=== PATIENT | female | born 1995 | race Caucasian/White ===

== ENCOUNTER 2023-04-05 23:51 | Emergency (ER) | payer MEDICAID, SELFPAY ==
[2023-04-05 23:49] VITALS: BP 129/112; PULSE 120; RESP 9; TEMP 36.7; O2SAT 98
[2023-04-05 23:53] VITALS: PULSE 121; RESP 25
[2023-04-06] VITALS (16 sets, daily range): BP systolic 104–129; BP diastolic 70–112; PULSE 87–130; RESP 8–22; TEMP 36.7; O2SAT 98–100
[2023-04-06] MEDS: Cellulose,Oxidized 2X3 PKT 1 EACH MC (00:15)
[2023-04-06] MEDS: Chlorhexidine 4% 120 ML BTL (00:15)
[2023-04-06 00:19] LABS: Abs Immature Grans 0.15 10^3/uL (0.0-0.06); Absolute Basophil Count 0.03 10^3/uL (0.0-0.2); Absolute Lymphocyte Count 2.24 10^3/uL (1.2-3.4); Absolute Monocyte Count 0.72 10^3/uL (0.1-0.8); Absolute Neutrophil Count 9.41 10^3/uL (1.2-6.7); Basophils % 0.2; Eosinophils % 0.8; HCT 34.4 % (36.0-46.0); HGB 11.5 g/dL (11.2-15.7); Immature Grans % 1.2; Lymphocytes % 17.7; MCH 30.5 pg (27.0-33.0); MCHC 33.4 % (32.0-36.0); MCV 91 fL (80-95); Monocytes % 5.7; Neutrophils % 74.4; Platelet Count 297 10^3/uL (130-400); RBC 3.77 10^6/uL (3.93-5.22); RDW-SD 43.3 fL; WBC 12.65 10^3/uL (4.4-10.8)
[2023-04-06] MEDS: ceFAZolin 3,000 MG in Normal Saline 100 ML 200 MG IVPB (00:27)
[2023-04-06] MEDS: Normal Saline 1,000 ML 1000 ML IV (00:30)
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
[2023-04-06 00:43] LABS: ALT 36 U/L (14-59); AST 34 U/L (15-37); Albumin 3.3 g/dL (3.4-5.0); Alkaline Phosphatase 54 U/L (46-116); Anion Gap 12.1 mmol/L (3-11); BUN 12 mg/dL (7-18); Bilirubin, Total 0.2 mg/dL (0.2-1.0); CO2 25.9 mmol/L (21.0-32.0); Calcium 8.7 mg/dL (8.5-10.1); Chloride 107 mmol/L (98-107); ETHANOL BLOOD 97.7 mg/dL (<10); Estimated GFR 80.18 (mL/min/1.73m2); Glucose 116 mg/dL (74-106); Potassium 3.4 mmol/L (3.5-5.1); Sodium 145 mmol/L (136-145); Total Protein 6.4 g/dL (6.4-8.2)
[2023-04-06 00:45] LABS: Acetaminophen < 2 ug/mL (10-30)
[2023-04-06 00:45] LABS: Bilirubin Negative (Negative); Blood Large (Negative); Clarity Sl Cloudy (Clear); Glucose Negative (Negative); Ketones Negative (Negative); Leukocyte Esterase Negative (Negative); Nitrite Negative (Negative); Urobilinogen 0.2 mg/dL (Up to 0.2)
[2023-04-06 00:53] LABS: *AMPHETAMINES SCREEN URINE Negative (Negative); *BARBITURATES SCREEN URINE Negative (Negative); *BENZODIAZEPINES SCREEN URINE Negative (Negative); Cannabinoids THC Positive (Negative); Cocaine Screen,Urine Positive (Negative); METHADONE URINE SCREEN Negative (Negative); OPIATES URINE SCREEN Negative (Negative)
[2023-04-06 00:57] LABS: Bacteria Few HPF (Negative); Epithelial Cells Many HPF (Negative); Tricyclic Antidepressants Negative (Negative); WBC 0-2 HPF (0-5)
[2023-04-06 00:58] LABS: C & S Indicated? No; Crystals Negative HPF (Negative); Mucus Negative (Negative)
== END 2023-04-06 01:44 | disposition short-term general hospital (02) ==
PROVIDERS: Emergency Provider Student in an Organized Health Care Education/Training Program
DX: R45.851 Suicidal ideations (principal); F10.10 Alcohol abuse, uncomplicated; Y90.4 Blood alcohol level of 80-99 mg/100 ml; F32.A Depression, unspecified; S51.012A Laceration without foreign body of left elbow, initial encounter; S55.99 Other specified injury of unspecified blood vessel at forearm level; Z23 Encounter for immunization; X78.1XXA Intentional self-harm by knife, initial encounter
CPT/HCPCS: 80053; 80307; 86850; 86900; 86901; 90471; 96361; 96374; 99285; 80320; 80329; 81003; 81015; 85025; J0690

== ENCOUNTER 2023-04-14 10:54 | Emergency (ER) | payer MEDICAID, SELFPAY ==
[2023-04-14 10:58] VITALS: BP 126/65; PULSE 106; RESP 16; TEMP 37.4; O2SAT 100
[2023-04-14 11:15] VITALS: BP 126/65; PULSE 106; RESP 16; TEMP 37.4; O2SAT 100
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
[2023-04-14] MEDS: Benzocaine 20% Gel 30 GM JAR MM (11:53)
[2023-04-14] MEDS: Bupivacaine 0.5% Pres-Free 30 ML VIAL IJ (12:14)
[2023-04-14] MEDS: Penicillin V POTASSIUM 500 MG TAB PO (12:21)
== END 2023-04-14 12:17 | disposition home or self-care (01) ==
LOC: ER 11:52
PROVIDERS: Emergency Provider Student in an Organized Health Care Education/Training Program
DX: K08.89 Other specified disorders of teeth and supporting structures (principal); F17.210 Nicotine dependence, cigarettes, uncomplicated
CPT/HCPCS: 64400; 99282

== ENCOUNTER 2023-04-18 08:08 | Emergency (ER) | payer MEDICAID, SELFPAY ==
[2023-04-18 08:12] VITALS: BP 120/58; PULSE 91; RESP 18; TEMP 37; O2SAT 100
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
[2023-04-18] MEDS: Lidocaine/Prilocaine Cream 5 GM TUBE TP (08:44)
== END 2023-04-18 09:28 | disposition home or self-care (01) ==
PROVIDERS: Emergency Provider Physician Assistant
DX: Z48.02 Encounter for removal of sutures (principal)
CPT/HCPCS: 99282

== ENCOUNTER 2023-04-22 07:53 | Emergency (ER) | payer MEDICAID, SELFPAY ==
[2023-04-22 07:58] VITALS: BP 115/86; PULSE 84; RESP 18; TEMP 36.8; O2SAT 99
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
[2023-04-22] MEDS: Fluconazole 150 MG TAB PO (08:36)
== END 2023-04-22 08:38 | disposition home or self-care (01) ==
PROVIDERS: Emergency Provider Student in an Organized Health Care Education/Training Program
DX: B37.31 Acute candidiasis of vulva and vagina (principal); S41.112D Laceration without foreign body of left upper arm, subsequent encounter; Z79.2 Long term (current) use of antibiotics; Z91.51 Personal history of suicidal behavior
CPT/HCPCS: 99283

== ENCOUNTER 2023-06-21 05:59 | Emergency (ER) | payer MEDICAID, SELFPAY ==
[2023-06-21 06:03] VITALS: BP 139/85; PULSE 64; RESP 18; TEMP 36.6; O2SAT 98
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
[2023-06-21] MEDS: Albuterol HFA 8 GM 60 PUFF INH IH (06:23)
[2023-06-21] MEDS: Inhaler, Assist Device 1 EACH MC (06:31)
[2023-06-21 06:44] VITALS: BP 130/80; PULSE 90; RESP 18; TEMP 36.6; O2SAT 98
[2023-06-21 06:48] VITALS: BP 130/80; PULSE 90; RESP 18; O2SAT 98
== END 2023-06-21 06:49 | disposition home or self-care (01) ==
LOC: ER 06:52
PROVIDERS: Emergency Provider Student in an Organized Health Care Education/Training Program
DX: R05.9 Cough, unspecified (principal); Z72.0 Tobacco use; J06.9 Acute upper respiratory infection, unspecified
CPT/HCPCS: 87426; 94640; 99283

== ENCOUNTER 2023-07-21 10:15 | Emergency (ER) | payer BC, MEDICAID, SELFPAY ==
[2023-07-21 10:17] VITALS: BP 121/77; PULSE 60; RESP 15; TEMP 36.8; O2SAT 100
[2023-07-21 10:22] VITALS: BP 121/77; PULSE 60; RESP 15; TEMP 36.8; O2SAT 100
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
[2023-07-21 11:15] VITALS: BP 121/77; PULSE 60; RESP 15; TEMP 36.8; O2SAT 100
== END 2023-07-21 11:16 | disposition home or self-care (01) ==
PROVIDERS: Emergency Provider Physician Assistant
DX: R68.84 Jaw pain (principal); K04.7 Periapical abscess without sinus
CPT/HCPCS: 64400

== ENCOUNTER 2023-11-21 15:55 | Emergency (ER) | payer SELFPAY ==
[2023-11-21 16:03] VITALS: BP 98/67; PULSE 89; RESP 14; TEMP 37; O2SAT 99
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
--- NOTE | 2023-11-21 16:15 | DI.RAD_ITS ---
Exam(s) XR NASAL BONES EXAM: XR NASAL BONES CLINICAL HISTORY: pain and deformity. TECHNIQUE: 2D digital imaging was performed. COMPARISON: No exams were available for comparison FINDINGS: BONES: No evidence of fracture. The nasal septum is midline. SOFT TISSUES: Unremarkable. IMPRESSION: No definite fracture is identified. No soft tissue swelling is seen. DATA REPOSITORY: RADIATION DOSE DELIVERED:
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
== END 2023-11-21 16:58 | disposition home or self-care (01) ==
PROVIDERS: Emergency Provider Physician Assistant
DX: S02.2XXD Fracture of nasal bones, subsequent encounter for fracture with routine healing (principal); S50.01XD Contusion of right elbow, subsequent encounter; S60.222D Contusion of left hand, subsequent encounter; S60.413D Abrasion of left middle finger, subsequent encounter; F17.210 Nicotine dependence, cigarettes, uncomplicated; Y09 Assault by unspecified means
CPT/HCPCS: 99283; 70160; 73080; 73130

== ENCOUNTER 2023-12-04 12:55 | Emergency (ER) | payer SELFPAY ==
[2023-12-04 13:00] VITALS: BP 108/76; PULSE 100; RESP 18; TEMP 37.4; O2SAT 99
[2023-12-04] MEDS: Lidocaine/Epinephri/Tetracaine Topical Gel 3 ML TP (13:29)
--- NOTE | 2023-12-04 15:06 | NUR.NOTE ---
Referral faxed to [facility] for partial thickness bur, wound care, in 48hrs. Nursing Note:
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
== END 2023-12-04 15:25 | disposition home or self-care (01) ==
PROVIDERS: Emergency Provider Physician Assistant
DX: T25.221A Burn of second degree of right foot, initial encounter (principal); T24.111A Burn of first degree of right thigh, initial encounter; T31.0 Burns involving less than 10% of body surface; X10.1XXA Contact with hot food, initial encounter; Y93.89 Activity, other specified; F17.210 Nicotine dependence, cigarettes, uncomplicated
CPT/HCPCS: 99283

== ENCOUNTER 2023-12-06 11:20 | Emergency (ER) | payer SELFPAY ==
[2023-12-06 11:30] VITALS: BP 117/88; PULSE 83; RESP 18; TEMP 36.5; O2SAT 98
[2023-12-06] MEDS: HYDROcodone 5/Acetaminophen 325 TAB PO (12:02)
[2023-12-06] MEDS: Silver sulfaDIAZINE 1% 25 GM TUBE TP (12:03)
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
== END 2023-12-06 12:09 | disposition home or self-care (01) ==
LOC: ER 12:18
PROVIDERS: Emergency Provider Emergency Medicine
DX: T25.229 Burn of second degree of unspecified foot (principal); T24.111 Burn of first degree of right thigh
CPT/HCPCS: 16020

== ENCOUNTER 2024-02-05 04:11 | Emergency (ER) | payer SELFPAY ==
[2024-02-05 04:14] VITALS: BP 155/91; PULSE 75; RESP 16; TEMP 36.8; O2SAT 100
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
--- NOTE | 2024-02-05 05:13 | DI.RAD_ITS ---
Exam(s) XR FOOT LT COMPLETE EXAM: XR FOOT LT COMPLETE CLINICAL HISTORY: eval fb. TECHNIQUE: 2D digital imaging was performed. Three views. COMPARISON: No exams were available for comparison FINDINGS: BONES: No acute fracture is present. No bony destructive lesion is seen. JOINTS: No dislocation present. SOFT TISSUE: Normal. No radiopaque foreign body or abnormal gas collection. IMPRESSION: Unremarkable radiographs of the left foot. DATA REPOSITORY: RADIATION DOSE DELIVERED:
--- NOTE | 2024-02-05 05:29 | DI.VRAD_ITS ---
PROCEDURE INFORMATION: Exam: XR Left Foot Exam date and time: 02/05/2024 5:07 AM Age: 28 years old Clinical indication: Other: Eval fb TECHNIQUE: Imaging protocol: Radiologic exam of the left foot. Views: 3 or more views. COMPARISON: No relevant prior studies available. FINDINGS: Bones/joints: Three views of the left foot reveal no acute fracture or dislocation. There is fusion across the distal interphalangeal joint of the 5th digit. Soft tissues: There appears to be soft tissue swelling in the 5th toe. Clinical correlation is recommended. No radiopaque foreign body is seen. IMPRESSION: No acute fracture or foreign body identified. Dictated and Authenticated by: Adam Nation MD. Ordering:TAIWO Healy MD
== END 2024-02-05 05:45 | disposition home or self-care (01) ==
PROVIDERS: Emergency Provider Student in an Organized Health Care Education/Training Program
DX: S91.312A Laceration without foreign body, left foot, initial encounter (principal); F17.210 Nicotine dependence, cigarettes, uncomplicated; W25.XXXA Contact with sharp glass, initial encounter; Y93.01 Activity, walking, marching and hiking; Y92.414 Local residential or business street as the place of occurrence of the external cause
CPT/HCPCS: 12001; 99283; 73630

== ENCOUNTER 2024-02-06 15:22 | Emergency (ER) | payer SELFPAY ==
[2024-02-06 15:25] VITALS: BP 127/84; PULSE 91; RESP 16; TEMP 37.7; O2SAT 98
[2024-02-06] MEDS: Doxycycline Hyclate 100 MG CAP PO (16:36)
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
== END 2024-02-06 16:37 | disposition home or self-care (01) ==
PROVIDERS: Emergency Provider Physician Assistant
DX: S91.312D Laceration without foreign body, left foot, subsequent encounter (principal); B96.89 Other specified bacterial agents as the cause of diseases classified elsewhere; W25.XXXD Contact with sharp glass, subsequent encounter
CPT/HCPCS: 87077; 99283; 87070; 87186; 87205

== ENCOUNTER 2024-03-14 17:04 | Emergency (ER) | payer SELFPAY ==
[2024-03-14 17:07] VITALS: BP 139/79; PULSE 78; RESP 20; TEMP 36.8; O2SAT 97
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
--- NOTE | 2024-03-14 17:15 | DI.RAD_ITS ---
Exam(s) XR CHEST 2V PA LATERAL EXAM: XR CHEST 2V PA LATERAL CLINICAL HISTORY: Trauma TECHNIQUE: 2D digital imaging was performed of the chest. Two images were obtained. PA and lateral views were obtained. COMPARISON: No exams were available for comparison FINDINGS: MEDIASTINUM: Normal. HEART: Normal. PULMONARY VASCULATURE: Normal. LUNGS: Clear. PLEURAL SPACE: No pleural effusion or pneumothorax. BONE:Within normal limits for the patient's age. The proximal right humeral fracture is best appreci ated on the x-ray of the right shoulder from the same day. There is again seen mild inferior subluxa tion of the right humeral head relative to the glenoid. OTHER FINDINGS:Normal. IMPRESSION: No acute pulmonary findings. DATA REPOSITORY: RADIATION DOSE DELIVERED:
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
[2024-03-14] MEDS: oxyCODONE 5 MG TAB PO (17:39)
[2024-03-14] MEDS: Acetaminophen 500 MG TAB 1000 MG PO (17:39)
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
--- NOTE | 2024-03-14 20:07 | DI.VRAD_ITS ---
PROCEDURE INFORMATION: Exam: CT Right Upper Extremity Without Contrast Exam date and time: 03/14/2024 19:31 Age: 28 years old Clinical indication: Other: Proximal humerus FX TECHNIQUE: Imaging protocol: Computed tomography of the right upper extremity without contrast. COMPARISON: CR XR SHOULDER RT COMPLETE 2+V 03/14/2024 17:58 FINDINGS: Bones/joints: Redemonstration of the acute comminuted fracture of the humeral head and neck. Humeral head fracture components are predominantly nondisplaced. The fracture involves the greater tuberosity and humeral head neck junction; there is a mild apex lateral angulation across the head neck junction along with 18 mm impaction. No dislocation. The AC joint is preserved. Soft tissues: Edema in the soft tissues lateral to the right humerus extending into the upper arm without a measurable hematoma. IMPRESSION: Redemonstration of the acute comminuted fracture of the humeral head and neck. Further details as above. Dictated and Authenticated by: Iveth Noriega MD. Ordering:KITTY Chávez MD
--- NOTE | 2024-03-15 15:56 | NUR.NOTE ---
Access chart to assist Dr. Reddy to determine the pain medication sent home with and how many. I found the information and relayed it to him. Nursing Note:
== END 2024-03-14 19:56 | disposition home or self-care (01) ==
PROVIDERS: Emergency Provider Emergency Medicine
DX: S42.351A Displaced comminuted fracture of shaft of humerus, right arm, initial encounter for closed fracture (principal); S32.19XA Other fracture of sacrum, initial encounter for closed fracture; F17.210 Nicotine dependence, cigarettes, uncomplicated; V86.09XA Driver of other special all-terrain or other off-road motor vehicle injured in traffic accident, initial encounter
CPT/HCPCS: 71046; 72170; 72220; 73030; 73070; 73200; 99284

== ENCOUNTER 2024-08-04 16:54 | Emergency (ER) | payer MEDICAID, SELFPAY ==
[2024-08-04 16:56] VITALS: BP 145/70; PULSE 75; RESP 15; TEMP 36.5; O2SAT 98
--- NOTE | 2024-08-04 17:15 | DI.RAD_ITS ---
Exam(s) XR HAND RT COMPLETE EXAM: XR HAND RT COMPLETE CLINICAL HISTORY: right hand injury. TECHNIQUE: 2D digital imaging was performed of the right hand. Three images were obtained. AP, late ral and oblique views were obtained. COMPARISON: CR XR HAND RT COMPLETE from 11/21/2023 FINDINGS: BONES: No acute fracture is present. No bony destructive lesion is seen. JOINTS: No dislocation present. SOFT TISSUE: There are linear densities seen in the soft tissues at the ulnar aspect of the base of t he proximal phalanx of the 5th finger. These may represent foreign bodies. Please correlate clinica lly. Underlying bone is unremarkable. No donor site is seen. IMPRESSION: 1. No acute fracture or dislocation. 2. Linear densities at the ulnar aspect of the base of the proximal phalanx of the 5th finger. These may represent loose bodies. Please correlate clinically. DATA REPOSITORY: RADIATION DOSE DELIVERED:
[2024-08-04 18:01] VITALS: BP 130/80; PULSE 75; RESP 15; TEMP 36.5; O2SAT 98
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
--- NOTE | 2024-08-04 19:19 | DI.VRAD_ITS ---
PROCEDURE INFORMATION: Exam: XR Right Hand Exam date and time: 08/04/2024 5:38 PM Age: 29 years old Clinical indication: Other: Right hand injury TECHNIQUE: Imaging protocol: Radiologic exam of the right hand. Views: 3 or more views. COMPARISON: CT UPPER EXTREMITY RT WO 03/14/2024 7:31 PM FINDINGS: Bones/joints: Three views of the right hand reveal no acute fracture or dislocation. There is gross deformity of the 5th right metacarpal with an appearance suggesting an old fracture. Soft tissues: There are small linear soft tissue densities projecting over the lateral margin of the hand adjacent to the base of the right 5th proximal phalanx. Soft tissue calcifications or radiodense foreign debris could have this appearance. Clinical correlation is recommended. IMPRESSION: No acute fracture or dislocation seen in the right hand. Old right 5th metacarpal fracture deformity. Dictated and Authenticated by: Adam Nation MD. Orderin Mercy Wilcox MD
== END 2024-08-04 18:02 | disposition home or self-care (01) ==
LOC: ER 18:06
PROVIDERS: Emergency Provider Emergency Medicine
DX: S60.221A Contusion of right hand, initial encounter (principal); K02.9 Dental caries, unspecified; W22.09XA Striking against other stationary object, initial encounter; Y93.89 Activity, other specified
CPT/HCPCS: 99283; 73130

== ENCOUNTER 2024-10-27 04:05 | Emergency (ER) | payer MEDICAID, SELFPAY ==
[2024-10-27 03:51] VITALS: BP 140/106; PULSE 88; RESP 20; TEMP 36.6; O2SAT 98
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
[2024-10-27 04:28] LABS: Absolute Basophil Count 0.03 10^3/uL (0.0-0.2); Basophils % 0.2 %; Eosinophils % 0.3 %; HCT 38.6 % (36.0-46.0); HGB 12.9 g/dL (11.2-15.7); Immature Grans % 0.6 %; Lymphocytes % 9.7 %; MCH 28.9 pg (27.0-33.0); MCHC 33.4 % (32.0-36.0); MCV 87 fL (80-95); MPV 11.1 fL (8.0-11.0); Monocytes % 5.7 %; Neutrophils % 83.5 %; Platelet Count 270 10^3/uL (130-400); RBC 4.46 10^6/uL (3.93-5.22); RDW 14.5 % (11.7-14.6); RDW-SD 45.5 fL
[2024-10-27 04:29] LABS: Absolute Eosinophil Count 0.05 10^3/uL (0.0-0.7); Absolute Lymphocyte Count 1.52 10^3/uL (1.2-3.4); Absolute Monocyte Count 0.89 10^3/uL (0.1-0.8); Absolute Neutrophil Count 13.11 10^3/uL (1.2-6.7)
[2024-10-27 04:36] LABS: Bilirubin Negative (Negative); Blood Moderate (Negative); Clarity Clear (Clear); Glucose Negative (Negative); Ketones Negative (Negative); Leukocyte Esterase Negative (Negative); Nitrite Negative (Negative); Specific Gravity >= 1.030 (1.005-1.025); Urobilinogen 0.2 mg/dL (Up to 0.2)
[2024-10-27] MEDS: ceFAZolin 2 GM/50 ML BAG IVPB (04:37)
[2024-10-27] MEDS: Normal Saline 1,000 ML 1000 ML IV (04:37)
[2024-10-27 04:43] LABS: Epithelial Cells Rare HPF (Negative); WBC Negative HPF (0-5)
[2024-10-27] MEDS: Ketorolac 30 MG/ML VIAL IVP (04:43)
[2024-10-27 04:44] LABS: Bacteria Rare HPF (Negative); C & S Indicated? No; Casts Negative LPF (Negative); Crystals Negative HPF (Negative); Mucus Negative (Negative)
[2024-10-27] MEDS: Lidocaine/Epinephri/Tetracaine Topical Gel 3 ML TP (04:44)
[2024-10-27 04:49] LABS: Salicylate 3.6 mg/dL (<2.8)
[2024-10-27 04:52] LABS: Acetaminophen < 2 ug/mL (10-30)
--- NOTE | 2024-10-27 04:52 | NUR.NOTE ---
Personal belongings in zone b locker 2. Nursing Note:
[2024-10-27 04:56] LABS: ALT 33 U/L (14-59); AST 57 U/L (15-37); Albumin 4.1 g/dL (3.4-5.0); Alkaline Phosphatase 74 U/L (46-116); Anion Gap 9.9 mmol/L (3-11); BUN 20 mg/dL (7-18); Bilirubin, Total 0.3 mg/dL (0.2-1.0); CO2 25.1 mmol/L (21.0-32.0); CREATININE 1.1 mg/dL (0.55-1.02); Chloride 105 mmol/L (98-107); ETHANOL BLOOD 166.1 mg/dL (<10); Estimated GFR 70.63 (mL/min/1.73m2); Glucose 98 mg/dL (74-106); Potassium 3.9 mmol/L (3.5-5.1); Sodium 140 mmol/L (136-145); TSH (W/Ref FT4) 4.28 uIU/mL (0.36-3.74); Total Protein 7.5 g/dL (6.4-8.2)
[2024-10-27 05:02] LABS: *AMPHETAMINES SCREEN URINE Positive (Negative); *BARBITURATES SCREEN URINE Negative (Negative); *BENZODIAZEPINES SCREEN URINE Negative (Negative); Cannabinoids THC Positive (Negative); Cocaine Screen,Urine Positive (Negative); METHADONE URINE SCREEN Negative (Negative); OPIATES URINE SCREEN Negative (Negative)
[2024-10-27 05:03] LABS: Tricyclic Antidepressants Negative (Negative)
[2024-10-27] MEDS: Acetaminophen 500 MG TAB 1000 MG PO (05:10)
[2024-10-27 05:12] LABS: FREE T4 0.97 ng/dL (0.76-1.46)
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
[2024-10-27] MEDS: Cephalexin 500 MG CAP PO ×2 (09:07→12:06)
--- NOTE | 2024-10-27 09:48 | PDOC.CMSAFE ---
Date of service: 10/27/24 Time of Service: 09:48 Care Management Safety Plan Status Status: Voluntary Reason for Wait Reason for Wait: Assessment/Screening Safety Plan Safety Plan: CM will respond to ED to assess patient after patient has been medically cleared and assessed by screener. If screener deems patient meets criteria for psychiatric stabilization CM will facilitate interdepartmental huddle with [facility] screener for safety planning considerations and meet with patient to review [facility] policy and safety plan, establish individual wishes for treatment and maintain patient rights. In the interim; please note safety plan below to guide patient care while awaiting further assessment in the ED.? SAFETY PLAN: 1. Will remain on suicide precautions and in paper clothes.? 2. Will remain in room under direct supervision of one-on-one staff at all times provided by [employer]IN, [employer] supervisor rough end. 3. May have paper cups, plates, finger foods as well as a cardboard spoon with which to eat meals. 4. Follow [facility] Management of the Admitted Behavioral Health Patient policy. 5. Comfort bath system only. 6. No personal belongings 7. No visitors. 8. Phone contact limited to?.. 9. Due to VOLUNTARY status, if patient wishes to leave [facility], staff will contact [facility] Crisis Screener ([phone]) and On-Call [employer] Operator ([phone]) as soon as possible. In the event of elopement, notify [facility] Police ([phone]). ? If deemed appropriate for inpatient psychiatric care, safety plan will be established with patient, and care team, to adhere to patient goals, identify restrictions based on behavioral status, address nutrition, and determine allowed personal belongings, tools for hygiene and personal care. As well plan will determine level of activity including ambulation, level of supervision, visitors, and determine privileges based on level of acuity, behaviors and level of engagement by patient.
[2024-10-27] MEDS: Ibuprofen 400 MG TAB PO (13:39)
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
== END 2024-10-27 14:39 | disposition home or self-care (01) ==
PROVIDERS: Student in an Organized Health Care Education/Training Program; Emergency Provider Emergency Medicine; PCP Student in an Organized Health Care Education/Training Program
DX: S81.012A Laceration without foreign body, left knee, initial encounter (principal); T25.222A Burn of second degree of left foot, initial encounter; F32.A Depression, unspecified; F10.929 Alcohol use, unspecified with intoxication, unspecified; X83.8XXA Intentional self-harm by other specified means, initial encounter; Z59.811 Housing instability, housed, with risk of homelessness; Z59.10 Inadequate housing, unspecified; Z59.41 Food insecurity; Z59.12 Inadequate housing utilities; Z59.82 Transportation insecurity; Z59.89 Other problems related to housing and economic circumstances; Z56.9 Unspecified problems related to employment; Z73.9 Problem related to life management difficulty, unspecified; Z60.8 Other problems related to social environment; S00.531A Contusion of lip, initial encounter
CPT/HCPCS: 99285 ×2; 12032; 96375; 81025; 00123; 73562; 80053; 80307; 96361; 96365; 73700; 80320; 80329; 81003; 81015; 84439; 84443; 85025; J0690; J1885

== ENCOUNTER 2025-01-27 17:16 | Emergency (ER) | payer MEDICAID, SELFPAY ==
[2025-01-27 17:21] VITALS: BP 149/104; PULSE 97; RESP 16; TEMP 36.6; O2SAT 98
--- NOTE | 2025-01-27 17:45 | DI.RAD_ITS ---
Exam(s) XR ABDOMEN FLAT PLATE EXAM: 2D digital imaging was performed. CLINICAL HISTORY: left flank pain. COMPARISON: No exams were available for comparison TECHNIQUE: Supine views of the abdomen performed. FINDINGS: BOWEL GAS PATTERN: Nondistended. CALCIFICATIONS: No radiopaque calcifications. OSSEOUS STRUCTURES: Unremarkable for age. Visualized lung bases: Clear. IMPRESSION: 1. Nonobstructive bowel gas pattern. 2. No radiopaque calculi. DATA REPOSITORY: RADIATION DOSE DELIVERED:
--- NOTE | 2025-01-27 17:45 | DI.RAD_ITS ---
Exam(s) XR HIP LT COMPLETE AP PELVIS EXAM: XR HIP LT COMPLETE AP PELVIS CLINICAL HISTORY: left flank pain. TECHNIQUE: 2D digital imaging was performed. Two views. COMPARISON: CR XR PELVIS AP from 03/14/2024 FINDINGS: BONES: No acute fracture is present. No bony destructive lesion is seen. JOINTS: No dislocation present. The SI joints and pubic symphysis are intact. No significant degenerative changes. SOFT TISSUE: Normal. IMPRESSION: Unremarkable radiographs of the left hip. DATA REPOSITORY: RADIATION DOSE DELIVERED:
[2025-01-27 17:46] LABS: Glucose Negative (Negative)
[2025-01-27 18:23] VITALS: BP 109/85; PULSE 80; RESP 16; O2SAT 99
[2025-01-27] MEDS: Cyclobenzaprine 10 MG TAB, 3 TABS/BTL PO (18:51)
[2025-01-27] MEDS: Ketorolac 15 MG/ML VIAL IM (18:58)
[2025-01-27 19:00] VITALS: BP 116/82; PULSE 78; RESP 16; O2SAT 99
--- NOTE | 2025-01-27 20:04 | DI.VRAD_ITS ---
PROCEDURE INFORMATION: Exam: XR Abdomen Exam date and time: 01/27/2025 6:15 PM Age: 29 years old Clinical indication: Other: Left flank pain TECHNIQUE: Imaging protocol: Radiologic exam of the abdomen. Views: Frontal supine view of the abdomen. 1 View. COMPARISON: CR XR PELVIS AP 03/14/2024 6:04 PM FINDINGS: Gastrointestinal tract: Normal. No bowel dilation. Vasculature: Radiopacities consistent with phleboliths project over left hemipelvis Bones/joints: Unremarkable. IMPRESSION: No acute findings. Dictated and Authenticated by: Ruddy Ray MD. Orderin Karla Jasso MD
--- NOTE | 2025-01-27 20:11 | DI.VRAD_ITS ---
PROCEDURE INFORMATION: Exam: XR Left Hip Exam date and time: 01/27/2025 6:18 PM Age: 29 years old Clinical indication: Other: Left flank pain TECHNIQUE: Imaging protocol: Radiologic exam of the left hip. Views: 2 or 3 views hip with pelvis when performed. COMPARISON: CR XR PELVIS AP 03/14/2024 6:04 PM FINDINGS: Bones/joints: Unremarkable. No acute fracture. Soft tissues: Unremarkable. IMPRESSION: No acute findings. Dictated and Authenticated by: Ruddy Ray MD. Orderin Karla Jasso MD
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
--- NOTE | 2025-01-28 11:41 | NUR.NOTE ---
Accessed Pt chart to find out who the Primary Care Provider is. He is Jewels Lino from [facility]. faxed refill request to him.
== END 2025-01-27 19:02 | disposition home or self-care (01) ==
PROVIDERS: Emergency Provider Physician Assistant; PCP Student in an Organized Health Care Education/Training Program
DX: M79.18 Myalgia, other site (principal); M25.552 Pain in left hip; Z59.10 Inadequate housing, unspecified; Z59.82 Transportation insecurity; Z59.811 Housing instability, housed, with risk of homelessness; Z59.87 Material hardship due to limited financial resources, not elsewhere classified; Z60.8 Other problems related to social environment
CPT/HCPCS: 99283; 99284; 96372; 81025; 73502; 74018; 81003; J1885

== ENCOUNTER 2025-01-30 08:58 | Outpatient (REF) | payer MEDICAID, SELFPAY ==
--- NOTE | 2025-01-30 08:40 | PAPFT_PTH ---
PATIENT: Ila Quarles LOC: [facility] U#:[id number] AGE/SX: 29/F ROOM: RE01/30/[address]: Fadi Lino : 1995 BED: DIS: 01/30/2025 SPEC #: [id number] RECD: 01/30/25 16:09 STATUS: ANKIT REBerto #: [id number] BERNARD: 01/30/25 08:[address]: Fadi Lino DEPT: [facility] Cytology RECD BY: Louisa Delacruz Tissues: 1 - CX/ENDOCX FOR PAP SMEARS Procedures: PAP THIN PREP/UVM Screening Comments: [id number]
== END 2025-01-30 08:59 | disposition home or self-care (01) ==
LOC: NCHCN 08:58
PROVIDERS: PCP Student in an Organized Health Care Education/Training Program; Visit Provider Student in an Organized Health Care Education/Training Program
DX: Z12.4 Encounter for screening for malignant neoplasm of cervix (principal)
CPT/HCPCS: 88142

== ENCOUNTER 2025-03-13 20:59 | Inpatient (IN) | payer MEDICAID, SELFPAY ==
[2025-03-13] VITALS (42 sets, daily range): BP systolic 101–157; BP diastolic 58–114; PULSE 61–115; RESP 10–22; TEMP 36.8; O2SAT 93–100
--- NOTE | 2025-03-13 21:00 | RT.EKG_ITS ---
APPROVED REPORT Exam: Resting ECG Reason for Exam: Overdose Patient Location: E HR:79 bpm ECG Measurements Heart Rate 79 AXIS IN 152 P 66 QRSd 102 QRS 43 QT 397 T 44 QTc 457 Conclusion Sinus rhythm, rate 79 No interval abnormalities No STEMI No priors available for comparison
[2025-03-13] MEDS: Naloxone 0.4 MG/ML VIAL 1 MG IVP (21:09)
[2025-03-13 21:12] LABS: Abs Immature Grans 0.28 10^3/uL (0.0-0.06); HCT 36.6 % (36.0-46.0); HGB 12.3 g/dL (11.2-15.7); Immature Grans % 2.3 %; MCH 30.6 pg (27.0-33.0); MCHC 33.6 % (32.0-36.0); MCV 91 fL (80-95); MPV 11.0 fL (8.0-11.0); Platelet Count 207 10^3/uL (130-400); RBC 4.02 10^6/uL (3.93-5.22); RDW 13.2 % (11.7-14.6); RDW-SD 43.1 fL; WBC 12.20 10^3/uL (4.4-10.8)
[2025-03-13] MEDS: Etomidate 20 MG/10 ML VIAL 10 MG IVP (21:21)
[2025-03-13] MEDS: Rocuronium 50 MG/5 ML SYR 120 MG IVP (21:22)
[2025-03-13] MEDS: PROPOFOL 1,000 MG/100 ML BTL 10 MG IV_INF (21:24)
[2025-03-13 21:29] LABS: ALT 21 U/L (14-59); AST 24 U/L (15-37); Albumin 3.6 g/dL (3.4-5.0); Alkaline Phosphatase 64 U/L (46-116); Anion Gap 8.5 mmol/L (3-11); BUN 8 mg/dL (7-18); Bilirubin, Total 0.3 mg/dL (0.2-1.0); CO2 28.5 mmol/L (21.0-32.0); Calcium 8.3 mg/dL (8.5-10.1); Chloride 109 mmol/L (98-107); Estimated GFR 89.86 (mL/min/1.73m2); Glucose 82 mg/dL (74-106); Magnesium 2.0 mg/dL (1.8-2.4); Potassium 3.3 mmol/L (3.5-5.1); Sodium 146 mmol/L (136-145); Total Protein 6.6 g/dL (6.4-8.2)
[2025-03-13 21:33] LABS: Glucose Negative (Negative)
[2025-03-13 21:45] LABS: Cannabinoids THC Positive (Negative); METHADONE URINE SCREEN Negative (Negative)
--- NOTE | 2025-03-13 21:47 | DI.RAD_ITS ---
Exam(s) XR PORTABLE CHEST AP EXAM: XR PORTABLE CHEST AP CLINICAL HISTORY: intubated. TECHNIQUE: 2D digital imaging was performed. COMPARISON: October 20 FINDINGS: Single AP portable view. Patient is intubated. Distal tip of the endotracheal tube is above the gerardo at the clavicular level. There is an NG tube in the stomach in the stomach is not distended Heart size is upper normal. The mediastinum is not widened. Lungs are clear. No infiltrates nor obvious pleural effusions. IMPRESSION: No acute pulmonary findings on this single AP portable view of the chest. ETT in satisfactory position. NG tube is in the stomach. DATA REPOSITORY: RADIATION DOSE DELIVERED:
--- NOTE | 2025-03-13 21:48 | DI.RAD_ITS ---
Exam(s) XR PORTABLE CHEST AP EXAM: XR PORTABLE CHEST AP CLINICAL HISTORY: tube placement. TECHNIQUE: 2D digital imaging was performed. COMPARISON: CR,XR XR PORTABLE CHEST AP from 03/13/2025 FINDINGS: Single AP portable view. Distal tip of the NG tube is in the stomach. The stomach is not distended Endotracheal tube is not in the field of view this study this image does not include the lung apices. It was performed for NG tube placement position. Heart size normal. The visualized mediastinum is not widened. Left lung is clear. There is slightly increased markings in the right lower lobe posterior basal segment difficult to assess without a lateral view. There are no pleural effusions. No fractures. No pneumothorax seen. IMPRESSION: As above. Recommend nonportable PA and lateral views when clinically possible to determine if there is truly infiltrate in the right lower lobe behind the heart. DATA REPOSITORY: RADIATION DOSE DELIVERED:
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
[2025-03-13] MEDS: fentaNYL 1,000 MCG in Normal Saline 80 ML 6 MCG IV_INF (22:09)
[2025-03-13 22:10] LABS: BE (Venous) -1 mmol/L (-2-3); HCO3 (Venous) 26 mmol/L (23-28); O2 Sat (Venous) 40 %; TCO2 (Venous) 24 mmol/L (24-29); pCO2 (Venous) 54 mmHg (41-51); pO2 (Venous) 27 mmHg
--- NOTE | 2025-03-13 22:12 | RESPIRATORY ---
Pt brought in via ems unresponsive, breathing on her own w/stable vitals. Minimal response to Narcan or painful stimuli. Pt intubated for airway protection w/o complication or event. Copious oral secretion, minimal secretions via ett are clear. Will continue to monitor and titrate vent settings as needed.
--- NOTE | 2025-03-13 22:34 | DI.VRAD_ITS ---
PROCEDURE INFORMATION: Exam: XR Chest Exam date and time: 03/13/2025 9:42 PM Age: 29 years old Clinical indication: Other: Intubated TECHNIQUE: Imaging protocol: Radiologic exam of the chest. Views: 1 view. COMPARISON: CR XR PORTABLE CHEST AP 06/22/2024 21:36 FINDINGS: Tubes, catheters and devices: The NG tube lies at the level of the stomach. The endotracheal tube is not visualized. Lungs: Unremarkable. No consolidation. Pleural spaces: Unremarkable. No pleural effusion. No pneumothorax. Heart/Mediastinum: Unremarkable. No cardiomegaly. Bones/joints: The skeletal structures and soft tissues show no evidence of fracture or other acute processes. Soft tissues: The lower chest is unremarkable. The extra-abdominal soft tissues are normal. The soft tissues of the extrathoracic region are unremarkable. Intraperitoneal space: The upper abdomen is unremarkable. IMPRESSION: Endotracheal tube is not visualized. Dictated and Authenticated by: Rajiv Yang MD. Orderin [facility] Norm Parson MD
--- NOTE | 2025-03-13 22:36 | DI.VRAD_ITS ---
PROCEDURE INFORMATION: Exam: XR Chest Exam date and time: 03/13/2025 9:36 PM Age: 29 years old Clinical indication: Device placement; Other: Tube placement TECHNIQUE: Imaging protocol: Radiologic exam of the chest. Views: 1 view. COMPARISON: CR XR CHEST 2V PA LATERAL 07/23/2023 18:01 FINDINGS: Tubes, catheters and devices: Endotracheal tube is in good position tip between the clavicles. The NG tube lies below the diaphragm in the stomach. Lungs: Low lung volumes. No definitive active cardiopulmonary disease. Pleural spaces: There is no evidence of pneumothorax. There are no pleural effusions present. Heart/Mediastinum: No cardiomegaly. Bones/joints: The skeletal structures and soft tissues show no evidence of fracture or other acute processes. Soft tissues: The soft tissues of the extrathoracic region are unremarkable. IMPRESSION: Low lung volumes. No definitive active cardiopulmonary disease. Dictated and Authenticated by: Rajiv Yang MD. Orderin [facility] Norm Parson MD
[2025-03-13 23:16] LABS: BE -3 mmol/L (-2-3); HCO3 22 mmol/L (22-26)
[2025-03-13 23:18] LABS: FIO2 25 %
[2025-03-13 23:28] LABS: Abs Immature Grans 0.19 10^3/uL (0.0-0.06); HCT 35.4 % (36.0-46.0); HGB 12.1 g/dL (11.2-15.7); Immature Grans % 1.9 %; MCH 31.0 pg (27.0-33.0); MCHC 34.2 % (32.0-36.0); MCV 91 fL (80-95); MPV 11.8 fL (8.0-11.0); Platelet Count 222 10^3/uL (130-400); RBC 3.90 10^6/uL (3.93-5.22); RDW 13.3 % (11.7-14.6); RDW-SD 43.7 fL; WBC 9.75 10^3/uL (4.4-10.8)
--- NOTE | 2025-03-13 23:39 | TELEP.MEDR_ITS ---
Date of service: 03/13/25 Time of Service: 23:39 Telepharmacy Home Med Rec Allergies Allergies: lobster Adverse Reaction (Mild, Verified 02/25/25 15:08) Itching fentanyl Adverse Reaction (Mild, Uncoded 02/25/25 15:08) Itching Interview Person Interviewed: * patient is intubated. Med rec was done via medical record review only Quality Quality of Interview/Accuracy of Medication List: Good Sources Sources used to compile medication list: [facility] Medication List, Retail Pharmacy and [facility] Changes made to Home Medication List: ADDITIONS: * Vyvanse 50mg PO daily DELETIONS: * Valtrex CHANGES: * none Additional Notes Additional Notes: * none Recommended Changes Attestation: The home medication list is now updated to the best of my knowledge and is ready to be reconciled by the provider. Please contact the TelePharmacy Medication Reconciliation Pharmacist at for any questions.
--- NOTE | 2025-03-13 23:39 | TELEP.MEDREC ---
Date of service: 03/13/25 Time of Service: 23:39 Telepharmacy Home Med Rec Allergies Allergies: lobster Adverse Reaction (Mild, Verified 02/25/25 15:08) Itching fentanyl Adverse Reaction (Mild, Uncoded 02/25/25 15:08) Itching Interview Person Interviewed: patient is intubated. Med rec was done via medical record review only Quality Quality of Interview/Accuracy of Medication List: Good Sources Sources used to compile medication list: [facility] Medication List, Retail Pharmacy and Instilling Values Changes made to Home Medication List: ADDITIONS: Vyvanse 50mg PO daily DELETIONS: Valtrex CHANGES: none Additional Notes Additional Notes: none Recommended Changes Attestation: The home medication list is now updated to the best of my knowledge and is ready to be reconciled by the provider. Please contact the TelePharmacy Medication Reconciliation Pharmacist at for any questions.
[2025-03-13 23:44] LABS: ALT 17 U/L (14-59); AST 22 U/L (15-37); Albumin 3.3 g/dL (3.4-5.0); Alkaline Phosphatase 56 U/L (46-116); Anion Gap 12.1 mmol/L (3-11); BUN 9 mg/dL (7-18); Bilirubin, Total 0.3 mg/dL (0.2-1.0); CO2 24.9 mmol/L (21.0-32.0); Calcium 8.1 mg/dL (8.5-10.1); Chloride 110 mmol/L (98-107); Estimated GFR 121.49 (mL/min/1.73m2); Glucose 91 mg/dL (74-106); Magnesium 2.0 mg/dL (1.8-2.4); Potassium 3.6 mmol/L (3.5-5.1); Sodium 147 mmol/L (136-145); Total Protein 6.2 g/dL (6.4-8.2); Troponin I 9 ng/L (<or=51)
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
[2025-03-14] VITALS (58 sets, daily range): BP systolic 73–149; BP diastolic 45–137; PULSE 63–108; RESP 11–27; TEMP 36.5–36.8; O2SAT 90–100
[2025-03-14 00:44] LABS: Troponin I 11 ng/L (<or=51)
[2025-03-14] MEDS: DEXTROSE 5%-0.45% SALINE 1,000 ML 150 ML IV (01:26)
[2025-03-14] MEDS: PROPOFOL 1,000 MG/100 ML BTL 20.6 MG IV_INF (02:13)
[2025-03-14 02:22] LABS: Troponin I 8 ng/L (<or=51)
[2025-03-14] MEDS: fentaNYL 1,000 MCG in Normal Saline 80 ML 25.9 MCG IV_INF (02:39)
[2025-03-14 05:38] LABS: COVID-19 PCR Negative (Negative); RSV PCR Negative (Negative)
[2025-03-14 06:27] LABS: HCT 32.8 % (36.0-46.0); HGB 11.0 g/dL (11.2-15.7); MCH 30.6 pg (27.0-33.0); MCHC 33.5 % (32.0-36.0); MCV 91 fL (80-95); MPV 11.7 fL (8.0-11.0); Platelet Count 209 10^3/uL (130-400); RBC 3.60 10^6/uL (3.93-5.22); RDW 13.2 % (11.7-14.6); RDW-SD 43.8 fL; WBC 7.18 10^3/uL (4.4-10.8)
[2025-03-14 06:41] LABS: INR 1.0 (0.9-1.1); Prothrombin Time 10.2 sec (9.1-11.1)
[2025-03-14 06:49] LABS: ALT 18 U/L (14-59); AST 21 U/L (15-37); Albumin 2.9 g/dL (3.4-5.0); Alkaline Phosphatase 55 U/L (46-116); Anion Gap 9.0 mmol/L (3-11); BUN 8 mg/dL (7-18); Bilirubin, Total 0.2 mg/dL (0.2-1.0); CO2 26.0 mmol/L (21.0-32.0); Calcium 7.9 mg/dL (8.5-10.1); Chloride 110 mmol/L (98-107); Estimated GFR 103.50 (mL/min/1.73m2); Glucose 114 mg/dL (74-106); Potassium 3.1 mmol/L (3.5-5.1); Sodium 145 mmol/L (136-145); Total Protein 5.7 g/dL (6.4-8.2)
[2025-03-14] MEDS: diphenhydrAMINE 25 MG CAP 50 MG PO (06:51)
--- NOTE | 2025-03-14 06:56 | W.PC.ACHO ---
Registration Status: ADM IN Primary Language: Preferred Language: ED Information & Data Chief Complaint OD/Poison 03/13/25 22:01 Triage Note PT was at [facility] drinking. PT 03/13/25 21:00 was found unresponsive. unknown down time. PT was given a total of 3 mg Narcan . PT has recent HX of change in sleeping pills PT has Hx of use of fentanyl and cocaine. PT has NPA in place and is A&OX 0. minimally responsive to pain (Last Reviewed 03/13/25 @ 23:55 by Benjamin Hinton) History of surgery on arm Most Recent Vital Signs Temperature 36.6 C 03/14/25 05:00 Temperature Source Temporal Artery Scan 03/14/25 05:00 Pulse 71 03/14/25 03:31 Pulse 71 03/14/25 03:31 Respiratory Rate 16 03/14/25 03:45 Respiratory Effort Mechanically Ventilated 03/14/25 00:55 Blood Pressure 78/49 L 03/14/25 03:31 Blood Pressure Mean 60 03/14/25 03:31 Pulse Oximetry 98 03/14/25 03:45 Respiratory End-tidal CO2 37 03/14/25 03:45 Oxygen Delivery Method Mechanical Ventilator 03/14/25 00:55 Oxygen Flow Rate 0 03/14/25 00:55 Fraction of Inspired Oxygen (FIO2) 5 03/14/25 03:45 Pain Level 0 03/13/25 21:00 Allergies lobster Adverse Reaction (Mild, Verified 02/25/25 15:08) Itching fentanyl Adverse Reaction (Mild, Uncoded 02/25/25 15:08) Itching Active Medications Generic Name Dose Route Start Last Admin Trade Name Freq PRN Reason Stop Dose Admin Propofol 1,000 mg in 100 mls @ 0 mls/hr 03/13/25 21:15 03/14/25 04:05 Diprivan IV_INF 20.6 mls/hr INFUSION CHENCHO 20.6 mls/hr Protocol Titration Per Protocol Fentanyl 1,000 mcg/ Sodium 100 mls @ 0 mls/hr 03/13/25 22:15 03/14/25 04:50 Chloride IV_INF 22.4 mls/hr INFUSION CHENCHO 22.4 mls/hr Protocol Titration Per Protocol Dextrose/Sodium Chloride 1,000 mls @ 150 mls/hr 03/14/25 00:52 03/14/25 05:52 Dextrose 5%-0.45% Ns IV 150 mls/hr INFUSION CHENCHO Administration IV IV Catheter Type [Right Saline Lock Antecubital] IV Catheter Type [Left Forearm Saline Lock ] IV Catheter Gauge [Right 18 Antecubital] IV Catheter Gauge [Left 20 Forearm] Diet Orders Category Date Time Status Nothing Per Oral [DIET] Nutrition 03/14/25 00:52 Active Diagnostics 03/14/25 03/14/25 03/14/25 Range/Units 05:36 04:55 02:00 WBC 7.18 (4.4-10.8) 10^3/uL RBC 3.60 L (3.93-5.22) 10^6/uL Hgb 11.0 L (11.2-15.7) g/dL Hct 32.8 L (36.0-46.0) % MCV 91 (80-95) fL MCH 30.6 (27.0-33.0) pg MCHC 33.5 (32.0-36.0) % RDW 13.2 (11.7-14.6) % Plt Count 209 (130-400) 10^3/uL MPV 11.7 H (8.0-11.0) fL Immature Gran % % Neutrophils % % Lymphocytes % % Monocytes % % Eosinophils % % Basophils % % Nucleated RBC % (0.0-0.3) % Absolute Neutrophils (1.2-6.7) 10^3/uL Absolute Lymphocytes (1.2-3.4) 10^3/uL Absolute Monocytes (0.1-0.8) 10^3/uL Absolute Eosinophils (0.0-0.7) 10^3/uL Absolute Basophils (0.0-0.2) 10^3/uL PT 10.2 (9.1-11.1) sec INR 1.0 (0.9-1.1) ABG Sample Site ABG pH (7.35-7.45) ABG pCO2 (35-45) mmHg ABG pO2 (80-105) mmHg ABG HCO3 (22-26) mmol/L ABG Total CO2 (23-27) mmol/L ABG O2 Saturation (95-98) % ABG Base Excess (-2-3) mmol/L VBG pH (7.31-7.41) VBG pCO2 (41-51) mmHg VBG pO2 mmHg VBG HCO3 (23-28) mmol/L VBG Total CO2 (24-29) mmol/L VBG O2 Saturation % VBG Base Excess (-2-3) mmol/L FiO2 % Sodium 145 (136-145) mmol/L Potassium 3.1 L (3.5-5.1) mmol/L Chloride 110 H (98-107) mmol/L Carbon Dioxide 26.0 (21.0-32.0) mmol/L Anion Gap 9.0 (3-11) mmol/L BUN 8 (7-18) mg/dL Creatinine 0.8 (0.55-1.02) mg/dL Est GFR (CKD-EPI 2020) 103.50 (mL/min/1.73m2) Glucose 114 H (74-106) mg/dL Calcium 7.9 L (8.5-10.1) mg/dL Magnesium (1.8-2.4) mg/dL Total Bilirubin 0.2 (0.2-1.0) mg/dL AST 21 (15-37) U/L ALT 18 (14-59) U/L Alkaline Phosphatase 55 (46-116) U/L Troponin I 8 (<or=51) ng/L Total Protein 5.7 L (6.4-8.2) g/dL Albumin 2.9 L (3.4-5.0) g/dL TSH Pending Urine Color (Yellow) Urine Clarity (Clear) Urine pH (5-8) Ur Specific [place] (1.005-1.025) Urine Protein (Neg-Trace) mg/dL Urine Ketones (Negative) mg/dL Urine Blood (Negative) Urine Nitrite (Negative) Urine Bilirubin (Negative) Urine Urobilinogen (Up to 0.2) mg/dL Ur Leukocyte Esterase (Negative) Urine Glucose (Negative) mg/dL Salicylates Pending Urine Opiates Screen (Negative) Urine Methadone Screen (Negative) Acetaminophen Pending Ur Barbiturates Screen (Negative) Ur Tricyclics Screen (Negative) Ur Amphetamines Screen (Negative) U Benzodiazepines Scrn (Negative) Urine Cocaine Screen (Negative) Ur THC Screen (Negative) Ethyl Alcohol (<10) mg/dL COVID-19 Source Pending SARS-CoV-2 (PCR) Pending Influenza Type A (PCR) Pending Influenza Type B (PCR) Pending RSV (PCR) Pending 03/14/25 03/13/25 03/13/25 Range/Units 00:18 23:12 23:11 WBC 9.75 (4.4-10.8) 10^3/uL RBC 3.90 L (3.93-5.22) 10^6/uL Hgb 12.1 (11.2-15.7) g/dL Hct 35.4 L (36.0-46.0) % MCV 91 (80-95) fL MCH 31.0 (27.0-33.0) pg MCHC 34.2 (32.0-36.0) % RDW 13.3 (11.7-14.6) % Plt Count 222 (130-400) 10^3/uL MPV 11.8 H (8.0-11.0) fL Immature Gran % 1.9 % Neutrophils % 69.0 % Lymphocytes % 19.6 % Monocytes % 7.7 % Eosinophils % 1.4 % Basophils % 0.4 % Nucleated RBC % 0.0 (0.0-0.3) % Absolute Neutrophils 6.72 H (1.2-6.7) 10^3/uL Absolute Lymphocytes 1.91 (1.2-3.4) 10^3/uL Absolute Monocytes 0.75 (0.1-0.8) 10^3/uL Absolute Eosinophils 0.14 (0.0-0.7) 10^3/uL Absolute Basophils 0.04 (0.0-0.2) 10^3/uL PT (9.1-11.1) sec INR (0.9-1.1) ABG Sample Site Right Radial ABG pH 7.40 (7.35-7.45) ABG pCO2 35 (35-45) mmHg ABG pO2 97 (80-105) mmHg ABG HCO3 22 (22-26) mmol/L ABG Total CO2 20 L (23-27) mmol/L ABG O2 Saturation 98 (95-98) % ABG Base Excess -3 L (-2-3) mmol/L VBG pH (7.31-7.41) VBG pCO2 (41-51) mmHg VBG pO2 mmHg VBG HCO3 (23-28) mmol/L VBG Total CO2 (24-29) mmol/L VBG O2 Saturation % VBG Base Excess (-2-3) mmol/L FiO2 25 % Sodium 147 H (136-145) mmol/L Potassium 3.6 (3.5-5.1) mmol/L Chloride 110 H (98-107) mmol/L Carbon Dioxide 24.9 (21.0-32.0) mmol/L Anion Gap 12.1 H (3-11) mmol/L BUN 9 (7-18) mg/dL Creatinine 0.7 (0.55-1.02) mg/dL Est GFR (CKD-EPI 2020) 121.49 (mL/min/1.73m2) Glucose 91 (74-106) mg/dL Calcium 8.1 L (8.5-10.1) mg/dL Magnesium 2.0 (1.8-2.4) mg/dL Total Bilirubin 0.3 (0.2-1.0) mg/dL AST 22 (15-37) U/L ALT 17 (14-59) U/L Alkaline Phosphatase 56 (46-116) U/L Troponin I 11 9 (<or=51) ng/L Total Protein 6.2 L (6.4-8.2) g/dL Albumin 3.3 L (3.4-5.0) g/dL TSH Urine Color (Yellow) Urine Clarity (Clear) Urine pH (5-8) Ur Specific [place] (1.005-1.025) Urine Protein (Neg-Trace) mg/dL Urine Ketones (Negative) mg/dL Urine Blood (Negative) Urine Nitrite (Negative) Urine Bilirubin (Negative) Urine Urobilinogen (Up to 0.2) mg/dL Ur Leukocyte Esterase (Negative) Urine Glucose (Negative) mg/dL Salicylates Urine Opiates Screen (Negative) Urine Methadone Screen (Negative) Acetaminophen Ur Barbiturates Screen (Negative) Ur Tricyclics Screen (Negative) Ur Amphetamines Screen (Negative) U Benzodiazepines Scrn (Negative) Urine Cocaine Screen (Negative) Ur THC Screen (Negative) Ethyl Alcohol (<10) mg/dL COVID-19 Source SARS-CoV-2 (PCR) Influenza Type A (PCR) Influenza Type B (PCR) RSV (PCR) 03/13/25 03/13/25 03/13/25 Range/Units 23:00 22:05 21:15 WBC (4.4-10.8) 10^3/uL RBC (3.93-5.22) 10^6/uL Hgb (11.2-15.7) g/dL Hct (36.0-46.0) % MCV (80-95) fL MCH (27.0-33.0) pg MCHC (32.0-36.0) % RDW (11.7-14.6) % Plt Count (130-400) 10^3/uL MPV (8.0-11.0) fL Immature Gran % % Neutrophils % % Lymphocytes % % Monocytes % % Eosinophils % % Basophils % % Nucleated RBC % (0.0-0.3) % Absolute Neutrophils (1.2-6.7) 10^3/uL Absolute Lymphocytes (1.2-3.4) 10^3/uL Absolute Monocytes (0.1-0.8) 10^3/uL Absolute Eosinophils (0.0-0.7) 10^3/uL Absolute Basophils (0.0-0.2) 10^3/uL PT (9.1-11.1) sec INR (0.9-1.1) ABG Sample Site ABG pH (7.35-7.45) ABG pCO2 (35-45) mmHg ABG pO2 (80-105) mmHg ABG HCO3 (22-26) mmol/L ABG Total CO2 (23-27) mmol/L ABG O2 Saturation (95-98) % ABG Base Excess (-2-3) mmol/L VBG pH Cancelled 7.29 L (7.31-7.41) VBG pCO2 Cancelled 54 H (41-51) mmHg VBG pO2 Cancelled 27 mmHg VBG HCO3 Cancelled 26 (23-28) mmol/L VBG Total CO2 Cancelled 24 (24-29) mmol/L VBG O2 Saturation Cancelled 40 % VBG Base Excess Cancelled -1 (-2-3) mmol/L FiO2 % Sodium (136-145) mmol/L Potassium (3.5-5.1) mmol/L Chloride (98-107) mmol/L Carbon Dioxide (21.0-32.0) mmol/L Anion Gap (3-11) mmol/L BUN (7-18) mg/dL Creatinine (0.55-1.02) mg/dL Est GFR (CKD-EPI 2020) (mL/min/1.73m2) Glucose (74-106) mg/dL Calcium (8.5-10.1) mg/dL Magnesium (1.8-2.4) mg/dL Total Bilirubin (0.2-1.0) mg/dL AST (15-37) U/L ALT (14-59) U/L Alkaline Phosphatase (46-116) U/L Troponin I (<or=51) ng/L Total Protein (6.4-8.2) g/dL Albumin (3.4-5.0) g/dL TSH Urine Color Yellow (Yellow) Urine Clarity Clear (Clear) Urine pH 6.0 (5-8) Ur Specific [place] 1.015 (1.005-1.025) Urine Protein Negative (Neg-Trace) mg/dL Urine Ketones Negative (Negative) mg/dL Urine Blood Negative (Negative) Urine Nitrite Negative (Negative) Urine Bilirubin Negative (Negative) Urine Urobilinogen 0.2 (Up to 0.2) mg/dL Ur Leukocyte Esterase Negative (Negative) Urine Glucose Negative (Negative) mg/dL Salicylates Urine Opiates Screen Negative (Negative) Urine Methadone Screen Negative (Negative) Acetaminophen Ur Barbiturates Screen Negative (Negative) Ur Tricyclics Screen Negative (Negative) Ur Amphetamines Screen Positive A (Negative) U Benzodiazepines Scrn Negative (Negative) Urine Cocaine Screen Positive A (Negative) Ur THC Screen Positive A (Negative) Ethyl Alcohol (<10) mg/dL COVID-19 Source SARS-CoV-2 (PCR) Influenza Type A (PCR) Influenza Type B (PCR) RSV (PCR) 03/13/25 Range/Units 21:05 WBC 12.20 H (4.4-10.8) 10^3/uL RBC 4.02 (3.93-5.22) 10^6/uL Hgb 12.3 (11.2-15.7) g/dL Hct 36.6 (36.0-46.0) % MCV 91 (80-95) fL MCH 30.6 (27.0-33.0) pg MCHC 33.6 (32.0-36.0) % RDW 13.2 (11.7-14.6) % Plt Count 207 (130-400) 10^3/uL MPV 11.0 (8.0-11.0) fL Immature Gran % 2.3 % Neutrophils % 64.8 % Lymphocytes % 20.9 % Monocytes % 9.9 % Eosinophils % 1.7 % Basophils % 0.4 % Nucleated RBC % 0.0 (0.0-0.3) % Absolute Neutrophils 7.91 H (1.2-6.7) 10^3/uL Absolute Lymphocytes 2.55 (1.2-3.4) 10^3/uL Absolute Monocytes 1.21 H (0.1-0.8) 10^3/uL Absolute Eosinophils 0.21 (0.0-0.7) 10^3/uL Absolute Basophils 0.05 (0.0-0.2) 10^3/uL PT (9.1-11.1) sec INR (0.9-1.1) ABG Sample Site ABG pH (7.35-7.45) ABG pCO2 (35-45) mmHg ABG pO2 (80-105) mmHg ABG HCO3 (22-26) mmol/L ABG Total CO2 (23-27) mmol/L ABG O2 Saturation (95-98) % ABG Base Excess (-2-3) mmol/L VBG pH (7.31-7.41) VBG pCO2 (41-51) mmHg VBG pO2 mmHg VBG HCO3 (23-28) mmol/L VBG Total CO2 (24-29) mmol/L VBG O2 Saturation % VBG Base Excess (-2-3) mmol/L FiO2 % Sodium 146 H (136-145) mmol/L Potassium 3.3 L (3.5-5.1) mmol/L Chloride 109 H (98-107) mmol/L Carbon Dioxide 28.5 (21.0-32.0) mmol/L Anion Gap 8.5 (3-11) mmol/L BUN 8 (7-18) mg/dL Creatinine 0.9 (0.55-1.02) mg/dL Est GFR (CKD-EPI 2020) 89.86 (mL/min/1.73m2) Glucose 82 (74-106) mg/dL Calcium 8.3 L (8.5-10.1) mg/dL Magnesium 2.0 (1.8-2.4) mg/dL Total Bilirubin 0.3 (0.2-1.0) mg/dL AST 24 (15-37) U/L ALT 21 (14-59) U/L Alkaline Phosphatase 64 (46-116) U/L Troponin I (<or=51) ng/L Total Protein 6.6 (6.4-8.2) g/dL Albumin 3.6 (3.4-5.0) g/dL TSH Urine Color (Yellow) Urine Clarity (Clear) Urine pH (5-8) Ur Specific [place] (1.005-1.025) Urine Protein (Neg-Trace) mg/dL Urine Ketones (Negative) mg/dL Urine Blood (Negative) Urine Nitrite (Negative) Urine Bilirubin (Negative) Urine Urobilinogen (Up to 0.2) mg/dL Ur Leukocyte Esterase (Negative) Urine Glucose (Negative) mg/dL Salicylates Urine Opiates Screen (Negative) Urine Methadone Screen (Negative) Acetaminophen Ur Barbiturates Screen (Negative) Ur Tricyclics Screen (Negative) Ur Amphetamines Screen (Negative) U Benzodiazepines Scrn (Negative) Urine Cocaine Screen (Negative) Ur THC Screen (Negative) Ethyl Alcohol 245.0 H (<10) mg/dL COVID-19 Source SARS-CoV-2 (PCR) Influenza Type A (PCR) Influenza Type B (PCR) RSV (PCR) [id number] Documentation Fingerstick Glucose Start: 03/13/25 21:10 Freq: Status: Active Protocol: Activity Type Activity Date Activity User E-sign Co-sign Detail Recorded Client Recorded Date Recorded By Document 03/13/25 21:09 BKG DAEMON(3) [id number] 03/13/25 21:10 BKG DAEMON(4) POC Urine Test Start: 03/13/25 21:03 Freq: .Urine Test Status: Active Protocol: Activity Type Activity Date Activity User E-sign Co-sign Detail Recorded Client Recorded Date Recorded By Document 03/13/25 21:49 CB [id number] 03/13/25 21:49 CB Intake and Output - 24 Hour Total 03/13/25 20:45 thru 03/14/25 05:52 Intake Total 1187.228 Output Total 1151 Balance 36.228 Weight 83 kg Intake: IV 1187.228 Output: Gastric Drainage 1 Oral 1 Urine 1150 Other: Urine Color Light Catheirne Urinary Catheter Urinary Catheter Date of 03/13/25 Insertion [Urethral (Story)] Time of insertion [Urethral ( 21:14 Story)] Falls Risk Assessment History of Falls No History 03/13/25 21:28 Contributing Factors Confusion,Impairments 03/13/25 21:28 Ambulatory Aids Independent 03/13/25 21:28 Tubes/Lines With any additional score 03/13/25 21:28 Gait Evaluation W/any additional score 03/13/25 21:28 Cognition Cognitive impairment 03/13/25 21:28 Fall Total Score 61 03/13/25 21:28 Level of Risk High Risk 03/13/25 21:28 Restraint Information Behavior Requiring Restraints/ Harm to Patient Seclusion Date of Initiation 03/14/25 Time Restraints were Initiated 01:40 Note Patient on continuous sedation and in non- violent restraints per hospital policy for patient safety and maintaining of ET tube. Notes 03/13/25 22:12 Respiratory by Yanci Bhagat Pt brought in via ems unresponsive, breathing on her own w/stable vitals. Minimal response to Narcan or painful stimuli. Pt intubated for airway protection w/o complication or event. Copious oral secretion, minimal secretions via ett are clear. Will continue to monitor and titrate vent settings as needed. Initialized on 03/13/25 22:12 - END OF NOTE v v v v v v v v v Sending and/or Receiving Nurses: Please use comment section below to note any information pertinent to the patient hand-off not included above. Information / Comments: Report received from: Wm Hill RN
--- NOTE | 2025-03-14 07:03 | RESPIRATORY ---
0630 pt placed on cpap 5/5, 21%, tolerating well. Able to nod to answer questions, and able to take slow deep breaths. MD at bedside, pt extubated to RA w/o complication. No stridor noted, pt has a strong cough and is speaking.
[2025-03-14 07:09] LABS: Salicylate 3.9 mg/dL (<2.8)
[2025-03-14 07:10] LABS: Acetaminophen < 2 ug/mL (10-30)
[2025-03-14 08:16] LABS: TSH 1.73 uIU/mL (0.36-3.74)
[2025-03-14] MEDS: hydrOXYzine 25 MG/ML VIAL IM (08:55)
[2025-03-14] MEDS: Enoxaparin 40 MG/0.4 ML SYR SC (08:55)
[2025-03-14] MEDS: Normal Saline Flush 10 ML SYR IVP (08:56)
[2025-03-14] MEDS: Potassium Chloride 20 MEQ TABCR 40 MEQ PO (08:56)
--- NOTE | 2025-03-14 11:22 | PDOC.CMDIS ---
Date of service: 03/14/25 Time of Service: 11:22 LACE Index Scoring Tool Questions: Length of Stay (in days): 1 Was the patient admitted via the E.D.?: Yes E.D. Visits: 3 Answers: Total Score: 7 Risk of Readmission: Low Risk Care Management Discharge Plan Reason for Hospitalization: Respiratory failure with drug overdose Discharge Plan: Ila will be discharged today with no new services indicated. It is recommended that she follow up with her community providers, theraputic supports, and discharge plan of care. Per report, no SI/HI. Ila will transport via private vehicle. Patient/Family Education Needs: Review of discharge instructions, activity, limitations, and plan of care. Discuss ask me three. SDOH Health Related Social Needs: Health related social needs inadequate housing risk of homeless transpo insecurity material hardship house/econ circumstance finding work daily activities lonely/isolated Health related social needs details needs help from [facility]
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
[2025-03-14] MEDS: valACYclovir 1,000 MG TAB 1000 MG PO (12:25)
[2025-03-14] MEDS: buPROPion-XL 150 MG TABCR 450 MG PO (12:25)
[2025-03-14 13:06] LABS: Salicylate 3.2 mg/dL (<2.8)
[2025-03-14] MEDS: hydrOXYzine HCL 25 MG TAB PO (16:07)
== END 2025-03-14 16:40 | disposition home or self-care (01) | DRG 917 ==
LOC: ER 03-14 00:09 → ICU 03-14 07:06
PROVIDERS: Admitting Provider Family Medicine; Emergency Provider Emergency Medicine; PCP Student in an Organized Health Care Education/Training Program; Responsible Provider Family Medicine; Visit Provider Family Medicine
DX: T50.991A Poisoning by other drugs, medicaments and biological substances, accidental (unintentional), initial encounter (principal); J96.02 Acute respiratory failure with hypercapnia; E87.0 Hyperosmolality and hypernatremia; F11.23 Opioid dependence with withdrawal; Z59.811 Housing instability, housed, with risk of homelessness; R41.82 Altered mental status, unspecified; F90.8 Attention-deficit hyperactivity disorder, other type; F60.3 Borderline personality disorder; Z79.899 Other long term (current) drug therapy; F10.929 Alcohol use, unspecified with intoxication, unspecified; F14.10 Cocaine abuse, uncomplicated; F17.210 Nicotine dependence, cigarettes, uncomplicated; Z59.82 Transportation insecurity; Z59.87 Material hardship due to limited financial resources, not elsewhere classified; R45.89 Other symptoms and signs involving emotional state; Y90.8 Blood alcohol level of 240 mg/100 ml or more
CPT/HCPCS: 00123; 31500; 36415; 36416; 51702; 80053; 80307; 81025; 82805; 82962; 85027; 87637; 93005; 96374; 99285; J1650; 36600; 71045; 80320; 80329; 81003; 83735; 84443; 84484; 85025; 85610; 93010; 94002; 94760; 99223; 99238; J2312; J2704; J3010; J3410; J3490

== ENCOUNTER 2025-03-30 04:31 | Emergency (ER) | payer MEDICAID, SELFPAY ==
[2025-03-30] VITALS (103 sets, daily range): BP systolic 96–123; BP diastolic 54–87; PULSE 69–94; RESP 13–36; TEMP 36.6–36.8; O2SAT 88–100
--- NOTE | 2025-03-30 04:15 | RT.EKG_ITS ---
APPROVED REPORT Exam: Resting ECG Reason for Exam: trauma Patient Location: E HR:72 bpm ECG Measurements Heart Rate 72 AXIS [place] 161 P 72 QRSd 92 QRS 50 QT 370 T 57 QTc 407 Conclusion Sinus arrhythmia...V-rate 52- 83, variation>10% no ST segment or T wave abnormalities to suggest occlusive [place]
[2025-03-30] MEDS: MORPHine 4 MG/ML SYR IVP (04:22)
[2025-03-30] MEDS: Ondansetron 4 MG/2 ML VIAL IVP (04:22)
[2025-03-30 04:27] LABS: BE (Venous) 1 mmol/L (-2-3); HCO3 (Venous) 27 mmol/L (23-28); O2 Sat (Venous) 46 %; TCO2 (Venous) 25 mmol/L (24-29); pCO2 (Venous) 48 mmHg (41-51); pO2 (Venous) 27 mmHg
[2025-03-30 04:28] LABS: Abs Immature Grans 0.32 10^3/uL (0.0-0.06); HCT 36.7 % (36.0-46.0); HGB 12.4 g/dL (11.2-15.7); Immature Grans % 2.5 %; MCH 31.0 pg (27.0-33.0); MCHC 33.8 % (32.0-36.0); MCV 92 fL (80-95); MPV 11.3 fL (8.0-11.0); Platelet Count 255 10^3/uL (130-400); RBC 4.00 10^6/uL (3.93-5.22); RDW 13.0 % (11.7-14.6); RDW-SD 43.7 fL; WBC 12.56 10^3/uL (4.4-10.8)
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
[2025-03-30 04:48] LABS: ALT 38 U/L (14-59); AST 71 U/L (15-37); Albumin 3.6 g/dL (3.4-5.0); Alkaline Phosphatase 63 U/L (46-116); Anion Gap 8.1 mmol/L (3-11); BUN 11 mg/dL (7-18); Bilirubin, Total 0.2 mg/dL (0.2-1.0); CO2 27.9 mmol/L (21.0-32.0); Calcium 9.2 mg/dL (8.5-10.1); Chloride 107 mmol/L (98-107); Estimated GFR 70.63 (mL/min/1.73m2); Glucose 101 mg/dL (74-106); Lipase 30 U/L (<78); Potassium 3.9 mmol/L (3.5-5.1); Sodium 143 mmol/L (136-145); Total Protein 6.8 g/dL (6.4-8.2); Troponin I 6 ng/L (<or=51)
[2025-03-30 04:58] LABS: INR 1.0 (0.9-1.1); PTT Activated 23.5 sec (20.6-30.2); Prothrombin Time 9.7 sec (9.1-11.1)
[2025-03-30 05:00] LABS: HCG Qual (Serum) Negative
[2025-03-30] MEDS: Normal Saline - Diluent 50 ML VIAL IJ (05:04)
[2025-03-30] MEDS: Omnipaque 350 MG/ML 100 ML BTL IJ (05:05)
[2025-03-30] MEDS: Normal Saline Flush 10 ML SYR IVP (05:05)
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
[2025-03-30] MEDS: Normal Saline 1,000 ML 125 ML IV (06:34)
[2025-03-30] MEDS: Ketorolac 15 MG/ML VIAL IVP (06:49)
[2025-03-30 06:51] LABS: Kit/Specimen SENT
[2025-03-30] MEDS: MORPHine 10 MG/ML VIAL 6 MG IVP (07:03)
== END 2025-03-30 07:31 | disposition other institution (70) ==
PROVIDERS: Emergency Provider Student in an Organized Health Care Education/Training Program; PCP Student in an Organized Health Care Education/Training Program
DX: S22.41XA Multiple fractures of ribs, right side, initial encounter for closed fracture; S27.321A Contusion of lung, unilateral, initial encounter; V48.5XXA Car driver injured in noncollision transport accident in traffic accident, initial encounter; F10.920 Alcohol use, unspecified with intoxication, uncomplicated; S22.080A Wedge compression fracture of T11-T12 vertebra, initial encounter for closed fracture; S22.070A Wedge compression fracture of T9-T10 vertebra, initial encounter for closed fracture; S22.078A Other fracture of T9-T10 vertebra, initial encounter for closed fracture; S22.068A Other fracture of T7-T8 thoracic vertebra, initial encounter for closed fracture; S22.058A Other fracture of T5-T6 vertebra, initial encounter for closed fracture; S22.048A Other fracture of fourth thoracic vertebra, initial encounter for closed fracture; S22.038A Other fracture of third thoracic vertebra, initial encounter for closed fracture; Z59.10 Inadequate housing, unspecified; Z60.8 Other problems related to social environment; Z59.811 Housing instability, housed, with risk of homelessness; Z59.89 Other problems related to housing and economic circumstances
CPT/HCPCS: 36415; 36416; 74177; 80053; 82805; 82962; 83690; 93005; 96374; 96375; 96376; 99291; 70450; 71260; 72125; 80320; 84484; 84703; 85025; 85610; 85730; 93010; J1885; J2270; J2405; J3490